=== PATIENT | male | born 1995 | race Caucasian/White ===

== ENCOUNTER → 2016-06-10 | Outpatient (REF) | payer OTHER | LOC: M SFHCCLAY 14:21 | PROVIDERS: ATTEND Nurse Practitioner Family | DX: F41.9 Anxiety disorder, unspecified (principal); Z53.9 Procedure and treatment not carried out, unspecified reason ==

== ENCOUNTER → 2017-08-07 | Outpatient (REF) | payer OTHER | LOC: M SFHCLERA 12:38 | DX: L02.511 Cutaneous abscess of right hand (principal) | CPT/HCPCS: 87070 ==